=== PATIENT | female | born 1945 | race Caucasian/White ===

== ENCOUNTER 2019-05-19 13:05 | Emergency (ER) | payer MEDICARE ==
[2019-05-19 14:30] LABS: BLOOD UREA NITROGEN,BUN 24 mg/dL (7.0-18.0); CARBON DIOXIDE,CO2 26.5 mmol/L (21.0-32.0); CHLORIDE,CL 99 mmol/L (98-107); GLUCOSE RANDOM 105 mg/dL (74-106); POTASSIUM,K 4.5 mmol/L (3.5-5.1); SODIUM,NA 135 mmol/L (136-145)
--- NOTE | 2019-05-19 14:50 | CR ---
Chest: Frontal view of the chest was obtained. Comparison: Prior chest CT study of 02/27/19, no previous chest x-ray is available. Heart is slightly enlarged. Tortuous thoracic aorta is seen. Scoliosis is noted within the spine. Several old right lower rib fractures are seen. Minimal scarring is seen within the left base. No definite acute parenchymal change is seen within either lung. Impression: 1. Findings as noted above. 2. Nothing acute is suspected on frontal chest x-ray. Diagnostic code #2 Study was dictated in [place] Standard Time
[2019-05-19] MEDS ORDERED: Cephalexin 500 MG Cap PO ONE (15:33)
--- NOTE | 2019-05-19 15:40 | EDM.PDOC ---
[facility] - General Chief Complaint: Respiratory Problem Stated Complaint: SICK/ COUGH Time Seen by Provider: 05/19/19 13:27 - History of Present Illness INITIAL COMMENTS - FREE TEXT/NARRATIVE: HPI 73-year-old female presents complaining of approximately one week of cough, mild malaise, and clear watery bilateral eye discharge. Patient is concerned she is influenza as she did not receive a yearly flu shot. Patient continues to take PO well. Patient reportedly has a history of breast CA under treatment. M/S/F/SocHx notable for: please see HPI; remainder reviewed with patient and in chart. ROS: Negative constitutional, eye, cardiovascular, pulmonary, GI, , MSK, skin , neurologic, psychiatric, endocrine unless noted in the HPI. Exam HR 92, RR 18, BP 119/81, T 36.8C, SaO2 94%. Gen: Pleasant, non-toxic appearing, resting comfortably. HEENT: NC, AT, PEERL, EOMI, conjunctive with faint injection, scant clear watery discharge bilaterally. Resp: Clear to auscultation bilaterally, normal work of breathing, no accessory muscle usage. Card: Regular rate and rhythm with no murmurs, rubs, or gallops, extremities warm and well perfused. GI: Non-tender to palpation throughout all quadrants, no focal tenderness at McBurney's point, negative Gregory's sign, non-distended, no rebound or guarding. : No suprapubic tenderness to palpation. MSK: No visible deformities, strength and tone without visually appreciable deficit. Skin: Normal color with no visible lesions. Neuro: alert and oriented 3, no facial asymmetry, vision and hearing WNL. Psych: Mood and affect appropriate. Labs / Imaging: WBC 9.38, HB 11.2, lactic acid 0.8, sodium 135, potassium 4.5. Influenza A & B negative. CXR: nothing acute is suspected of frontal chest x-ray. UA - positive nitrates, 1+ bacteria, few epithelial cells, small leukocyte esterase. MDM Previous chart, nursing note, labs, imaging, and vitals reviewed. A: 73-year-old female presents complaining of approximately one week of cough, mild malaise, and clear watery bilateral eye discharge. DDx: pneumonia, URI, dehydration, electrolyte abnormalities, UTI. Evaluation: patient clinically euvolemic, electrolytes within acceptable limits , no evidence of occult bacteremia, imaging and exam without evidence of pneumonia. Clinically suspect a viral URI given the overall symptom constellation. UA consistent with infection versus colonization, given the vagueness of the patients complaints empiric treatment is appropriate. Watery eye discharge felt to be secondary to a viral URI, no evidence of mucopurulent discharge, or further features suggestive of bacterial process. Recommend PCP follow-up in 24-36 hours repeat evaluation. While PE could theoretically be on the differential, the absence of shortness breath, tachycardia, hypoxemia ( objectively demonstrate), as well as symptom constellation of malaise, cough, and watery bilateral eye discomfort are more consistent with a viral process, as such further investigation is not presently warranted. ED Course: 15:20 - patient resting comfortably, normal work of breathing. SaO2 95% on room air. Suspect the 2nd set of vital signs logged with a SaO2 of 98% on 2 L per minute to be in accurate as I turned oxygen off following my initial assessment and remained off throughout the patients ED course. 15:39 - patient resting comfortably, eating a meal, notes that all of her symptoms have improved/resolved. Disposition: discharge with PCP follow-up recommended in 24-36 hours, Keflex prescribed for UTI. First dose given in ED. Impression: URI, UTI versus asymptomatic bacteriuria. - Related Data Allergies Allergy/AdvReac Type Severity Reaction Status Date / Time meperidine HCl [From Demerol] Allergy Cannot Verified 05/19/19 13:46 Remember Home Meds: Home Meds . [No Known Home Meds] 11/24/13 [History] Past Medical History Oncologic (Cancer) History: Reports: Breast - Past Surgical History Oncologic Surgical History: Reports: Lumpectomy, Other (See Below) Other Oncologic Surgeries/Procedures: Right Sided Lumpectomy Social & Family History - Family History Family Medical History: Noncontributory - Tobacco Use Smoking Status *Q: Never Smoker - Recreational Drug Use Recreational Drug Use: No ED ROS GENERAL - Review of Systems Review Of Systems: See Below ED EXAM, GENERAL - Physical Exam Exam: See Below Course - Vital Signs Last Recorded V/S: Last Vital Signs Temp 36.8 C 05/19/19 13:46 Pulse 87 05/19/19 14:44 Resp 18 05/19/19 14:44 BP 144/88 H 05/19/19 14:44 Pulse Ox 98 05/19/19 14:44 - Orders/Labs/Meds Labs: Laboratory Tests 05/19/19 05/19/19 05/19/19 Range/Units 13:55 13:55 13:55 WBC 9.38 (4.0-11.0) K/uL RBC 3.91 L (4.30-5.90) M/uL Hgb 11.2 L (12.0-16.0) g/dL Hct 33.8 L (36.0-46.0) % MCV 86.4 (80.0-98.0) fL MCH 28.6 (27.0-32.0) pg MCHC 33.1 (31.0-37.0) g/dL RDW Std Deviation 43.8 (28.0-62.0) fl RDW Coeff of Feli 14 (11.0-15.0) % Plt Count 432 H (150-400) K/uL MPV 9.50 (7.40-12.00) fL Add Manual Diff YES Neutrophils % (Manual) 73 (48.0-80.0) % Band Neutrophils % 4 % Lymphocytes % (Manual) 11 L (16.0-40.0) % Monocytes % (Manual) 11 (0.0-15.0) % Basophils % (Manual) 1 (0.0-1.5) % Nucleated RBC % 0.0 /100WBC Absolute Seg Neuts 6.8 H (1.4-5.7) Band Neutrophils # 0.4 Lymphocytes # (Manual) 1.0 (0.6-2.4) Monocytes # (Manual) 1.0 H (0.0-0.8) Basophils # (Manual) 0.1 (0.0-0.1) Nucleated RBCs # 0 K/uL Lactate 0.8 (0.20-2.00) mmol/L Sodium 135 L (136-145) mmol/L Potassium 4.5 (3.5-5.1) mmol/L Chloride 99 (98-107) mmol/L Carbon Dioxide 26.5 (21.0-32.0) mmol/L BUN 24 H (7.0-18.0) mg/dL Creatinine 0.9 (0.6-1.0) mg/dL Est Cr Clr Drug Dosing 54.14 mL/min Estimated GFR (MDRD) > 60.0 ml/min Glucose 105 (74-106) mg/dL Calcium 10.6 H (8.5-10.1) mg/dL Urine Color Urine Appearance Urine pH (5.0-8.0) Ur Specific [place] (1.001-1.035) Urine Protein (NEGATIVE) mg/dL Urine Glucose (UA) (NEGATIVE) mg/dL Urine Ketones (NEGATIVE) mg/dL Urine Occult Blood (NEGATIVE) Urine Nitrite (NEGATIVE) Urine Bilirubin (NEGATIVE) Urine Urobilinogen (<2.0) EU/dL Ur Leukocyte Esterase (NEGATIVE) Urine RBC (0-2/HPF) Urine WBC (0-5/HPF) Ur Epithelial Cells (NONE-FEW) Urine Bacteria (NEGATIVE) 05/19/19 Range/Units 15:07 WBC (4.0-11.0) K/uL RBC (4.30-5.90) M/uL Hgb (12.0-16.0) g/dL Hct (36.0-46.0) % MCV (80.0-98.0) fL MCH (27.0-32.0) pg MCHC (31.0-37.0) g/dL RDW Std Deviation (28.0-62.0) fl RDW Coeff of Feli (11.0-15.0) % Plt Count (150-400) K/uL MPV (7.40-12.00) fL Add Manual Diff Neutrophils % (Manual) (48.0-80.0) % Band Neutrophils % % Lymphocytes % (Manual) (16.0-40.0) % Monocytes % (Manual) (0.0-15.0) % Basophils % (Manual) (0.0-1.5) % Nucleated RBC % /100WBC Absolute Seg Neuts (1.4-5.7) Band Neutrophils # Lymphocytes # (Manual) (0.6-2.4) Monocytes # (Manual) (0.0-0.8) Basophils # (Manual) (0.0-0.1) Nucleated RBCs # K/uL Lactate (0.20-2.00) mmol/L Sodium (136-145) mmol/L Potassium (3.5-5.1) mmol/L Chloride (98-107) mmol/L Carbon Dioxide (21.0-32.0) mmol/L BUN (7.0-18.0) mg/dL Creatinine (0.6-1.0) mg/dL Est Cr Clr Drug Dosing mL/min Estimated GFR (MDRD) ml/min Glucose (74-106) mg/dL Calcium (8.5-10.1) mg/dL Urine Color YELLOW Urine Appearance SLT CLOUDY Urine pH 7.0 (5.0-8.0) Ur Specific [place] 1.010 (1.001-1.035) Urine Protein NEGATIVE (NEGATIVE) mg/dL Urine Glucose (UA) NEGATIVE (NEGATIVE) mg/dL Urine Ketones NEGATIVE (NEGATIVE) mg/dL Urine Occult Blood NEGATIVE (NEGATIVE) Urine Nitrite POSITIVE H (NEGATIVE) Urine Bilirubin NEGATIVE (NEGATIVE) Urine Urobilinogen 0.2 (<2.0) EU/dL Ur Leukocyte Esterase SMALL H (NEGATIVE) Urine RBC 0-2 (0-2/HPF) Urine WBC 1-3 (0-5/HPF) Ur Epithelial Cells FEW (NONE-FEW) Urine Bacteria 1+ H (NEGATIVE) Meds: Medications Discontinued Medications Generic Name Dose Route Start Last Admin Trade Name Freq PRN Reason Stop Dose Admin Cephalexin 500 mg 05/19/19 15:33 Keflex PO 05/19/19 15:34 ONETIME ONE Departure - Departure Time of Disposition: 15:39 Disposition: Home, Self-Care 01 Clinical Impression: URI (upper respiratory infection), UTI (urinary tract infection) - Discharge Information Referrals: PCP,Unknown [Primary Care Provider] - Additional Instructions: You were in seen in the [facility] Emergency Department for evaluation of cough, fatigue, malaise, and watery eye discharge. The time of your evaluation your suspected have a viral upper respiratory tract infection. You were also noted to have bacteria in your urine concerning for urinary tract infection. This may be contributing to her symptoms. As such you have been prescribed cephalexin for treatment of this infection. Please read and follow all of the instructions below. Please follow up with your primary care physician within 24-36 hours repeat evaluation and further care as needed. When calling for follow-up care, please make the office aware that this follow-up is from your recent emergency room visit. If for any reason you are refused follow-up, please contact the [facility] Emergency Department at and asked to speak to the emergency department charge nurse. Your care today was limited to identifying and treating emergent medical problems only. Many people have subtle differences in their test results that require follow up with their outpatient physician(s) to correctly determine if this represents a normal variation or concerning abnormality with respect to your specific health. The care given to you today was limited to identifying and treating emergent medical problems - you need to request a copy of all of your medical records from today's visit and follow up with your outpatient physician(s) to review both today's visit and your overall health. If you have any new symptoms or if you are at all concerned about your health please return immediately to the emergency department. You have an infection of your urinary tract. * Take 500 mg Cephalexin (Keflex) twice a day for the next 10 days. * Stay well hydrated. Please return to the emergency department if you develop any of the following: * Fevers or chills * Flank pain * Back pain * Blood in your urine * If you are otherwise concerned about your health If after 3 days of you still have pain on urination or a sensation that you need to urinate frequently please follow up with your primary care physician. Cephalexin (Brand Name: Keflex) Take as directed on the prescription. Take the full prescribed course of medications. SIDE EFFECTS: Diarrhea, dizziness, headache, or stomach upset may occur. If any of these effects persist or worsen, tell your doctor or pharmacist promptly. Tell your doctor immediately if any of these rare but very serious side effects occur: severe stomach/abdominal pain, persistent nausea/vomiting, yellowing eyes /skin, dark urine, change in the amount of urine, new signs of infection (e.g., fever, persistent sore throat), easy bruising/bleeding, mental/mood changes ( e.g., agitation, confusion). This medication may rarely cause a severe intestinal condition (Clostridium difficile-associated diarrhea) due to a resistant bacteria. This condition may occur during treatment or weeks to months after treatment has stopped. Tell your doctor immediately if you develop persistent diarrhea, abdominal or stomach pain/cramping, blood/mucus in your stool. Do not use anti-diarrhea products or narcotic pain medications if you have any of these symptoms because these products may make them worse. Use of this medication for prolonged or repeated periods may result in oral thrush or a new vaginal yeast infection. Contact your doctor if you notice white patches in your mouth, a change in vaginal discharge, or other new symptoms. A very serious allergic reaction to this drug is rare. However, seek immediate medical attention if you notice any symptoms of a serious allergic reaction, including: rash, itching/swelling (especially of the face/tongue/throat), severe dizziness , trouble breathing. This is not a complete list of possible side effects. If you notice other effects not listed above, contact your doctor or pharmacist. PRECAUTIONS: Before taking cephalexin, tell your doctor or pharmacist if you are allergic to it; or to penicillins or other cephalosporins (e.g., cefpodoxime ); or if you have any other allergies. This product may contain inactive ingredients, which can cause allergic reactions or other problems. Talk to your pharmacist for more details. Before using this medication, tell your doctor or pharmacist your medical history, especially of: kidney disease, stomach/ intestinal disease (e.g., colitis). This drug may make you dizzy. Do not drive, use machinery, or do any activity that requires alertness until you are sure you can perform such activities safely. Limit alcoholic beverages. The liquid form of this product may contain sugar. Caution is advised if you have diabetes. Ask your doctor or pharmacist about using this product safely. Kidney function declines as you grow older. This medication is removed by the kidneys. Therefore, older adults may be at greater risk for side effects while using this drug. During , this medication should be used only when clearly needed. Discuss the risks and benefits with your doctor. This medication passes into breast milk. Consult your doctor before breast-feeding. DRUG INTERACTIONS: Your doctor or pharmacist may already be aware of any possible drug interactions and may be monitoring you for them. Do not start, stop, or change the dosage of any medicine before checking with them first. Before using this medication, tell your doctor or pharmacist of all prescription and nonprescription/herbal products you may use, especially of: vaccines that contain live bacteria (e.g., typhoid, BCG), metformin, probenecid. This medication may decrease the effectiveness of combination-type control pills. This can result in . You may need to use an additional form of reliable control while using this medication. Consult your doctor or pharmacist for details. This medication may interfere with certain laboratory tests (including Rodrick' test, certain urine glucose tests), possibly causing false test results. Make sure laboratory personnel and all your doctors know you use this drug. This document does not contain all possible interactions. Therefore, before using this product, tell your doctor or pharmacist of all the products you use. Keep a list of all your medications with you, and share the list with your doctor and pharmacist. Prescriptions: If you are uninsured or have financial difficulties with filling your prescription(s), you may consider using a free pharmacy discount service such as [employer] ([employer]) or [employer] ([employer]). These services allow you to search for a medication on your phone (or computer) and obtain a coupon that usually has a significant discount from the list johns at a pharmacy. Your physician as well as [facility] does not have a financial relationship with either of these services. You may also wish to speak with your physician to determine if lower cost prescriptions are possible. Obtaining primary care: 1. [facility] provides pediatrics (children), family medicine (children, adults, and some obstetrical care), and internal medicine (adults). Further specialty care is also available. Same day appointments are available. They may be contacted at [phone] and are open Wednesday through Wednesday 8 AM to 5 PM. The [facility] are located at [facility], [address] [place] [address]. 2. [facility] offers family medicine, internal medicine, womens health, and further specialty care. [facility] may be contacted at [phone]. [facility] is located at [address] [place] [address]. 3. If you have health insurance, please also contact your insurer for a list of accepting providers under your policy, you may contact these providers for further health care. Occupational health: Work related injuries may consider following up with [facility], . Occupational health services are located at [address] [place] [address] and are open Wednesday through Andrei from 7: 30 am to 5:00 pm. Obstetrical and Gynecological Care: [facility], , Wednesday through Wednesday 8 AM to 5 PM. [address] [place] [address]. Eyecare: If you have an eye injury you should follow up with your duplicating machine mechanic or with [facility], at [phone] or [phone] , they are located at [address] [place] [id number]. [facility] Angel Narvaez DDS. [address] [place], [place]. Ph. [phone] Azael Narvaez DDS MS. [address] [facility] 104, [place], [place]. Ph. Rajan Osullivan DDS. 10 03/[address] [place] [address]. Ph. [phone] Shayne Mosley DDS. [address] [facility] 4 [place], [place]. Ph. [phone] [facility]. [address] [facility] [address] [facility] 101 [place], [place]. Ph. [phone] Anne-Marie Polanco DDS. [address] [place] [address]. Ph. [phone] [facility]. [address] [place], [place]. Ph. [phone] [facility]. [address], [place], [place]. Ph. [phone] [facility] [address] [place] [phone]. Ph. [facility]. [address] [place] [address] [address] [place], [place]. Ph. [phone] [facility]. [address] [facility] [place] Ph. [phone] Sepsis Event Note - Evaluation Sepsis Screening Result: No Definite Risk - Focused Exam Vital Signs: Vital Signs Temp Pulse Resp BP Pulse Ox 05/19/19 14:44 87 18 144/88 H 98 05/19/19 13:46 36.8 C 92 18 119/81 94 L Date Exam was Performed: 05/19/19 Time Exam was Performed: 15:35
[2019-05-19] MEDS ORDERED: Iopamidol 755 MG/ML 500 ML Multipack Bottle IVPUSH STA (17:02)
--- NOTE | 2019-05-19 17:17 | CT ---
CT chest Technique: Multiple axial sections through the chest were obtained. Intravenous contrast was utilized. Study has been performed as a pulmonary angiogram protocol. Findings: Pulmonary arteries are well-opacified. No filling defects are seen to indicate pulmonary embolism. Heart is slightly enlarged. Upper mediastinum shows no adenopathy. Aorta shows no aneurysm. No pericardial thickening is seen. Visualized upper abdominal structures shows no discrete abnormality. Small right sided pleural effusion is noted. Scattered scarring is noted within both lungs most prominent within the right lung base. Findings within the right base are slightly more prominent on prior study and difficult to exclude superimposed pneumonia. 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 Impression: 1. No findings of pulmonary embolism. 2. Chronic change within both lungs. 3. Increased density of the right lung base which has worsened from prior exam possibly due to pneumonia. Small right sided pleural effusion is seen possibly due to small parapneumonic effusion. 4. Stable osteoblastic metastasis within the spine, ribs and sternum. Diagnostic code #3 Study was dictated in [place] Standard Time
[2019-05-19] MEDS ORDERED: Azithromycin 250 MG Tab PO STA (18:00)
[2019-05-19] MEDS ORDERED: Amoxicillin/Clavulanate K 875-125 MG Tab PO ONE (18:00)
[2019-05-20 07:12] VITALS: BP 111/68; PULSE 97
== END 2019-05-19 18:36 | disposition home or self-care (01) ==
LOC: MW.ED 13:05
DX: J06.9 Acute upper respiratory infection, unspecified (principal); N39.0 Urinary tract infection, site not specified; Z88.8 Allergy status to other drugs, medicaments and biological substances
CPT/HCPCS: 36415; 71046; 71275; 80048; 81001; 83605; 85025; 87804; 99284; A9270; Q9967; 99283